=== PATIENT | male | born 1990 | race Caucasian/White ===

== ENCOUNTER 2016-10-22 12:41 | Emergency (ER) | payer OTHER ==
[2016-10-22 12:45] VITALS: RESP 16; TEMP 98.1; O2SAT 96
--- NOTE | 2016-10-22 13:20 | EDPHY ---
H & P Time Seen by Provider: 10/22/16 13:13 HPI/ROS: CHIEF COMPLAINT: Right wrist injury HISTORY OF PRESENT ILLNESS: 26-year-old [place] wrist this morning. Pain with palpation and axial loading. REVIEW OF SYSTEMS: No weakness or numbness distally and no elbow or shoulder symptoms. 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 Patient has tenderness to palpation on the proximal portion of the thenar eminence and over the snuffbox on the right wrist. Normal motor sensory and capillary refill in all fingers. No visible deformity and no skin laceration. No rotation of the fingers when making a fist. Emergency Department course/MDM: X-rays reviewed with the patient personally. X-ray personally interpreted by myself is normal of the right wrist. Velcro thumb spica splint applied by tech on the patient's right wrist. Patient is warned mandatory orthopedic follow-up with Dr. Shaw this week for the possibility of occult scaphoid fracture. Smoking Status: Current every day smoker Constitutional: Initial Vital Signs Temperature (C) 36.7 C 10/22/16 12:42 Heart Rate 89 10/22/16 12:42 Respiratory Rate 16 10/22/16 12:42 Blood Pressure 122/70 H 10/22/16 12:42 O2 Sat (%) 96 10/22/16 12:42 O2 Delivery Mode Room Air Allergies/Adverse Reactions: No Known Allergies Allergy (Unverified 10/22/16 12:46) Home Medications: Medication Instructions Recorded ALPRAZolam [Xanax 0.5 MG (*)] 0.5 mg PO 10/22/16 Amphet Asp and D/Amphet [Adderall 10 mg PO 10/22/16 10 MG (*)] Esomeprazole Mag Trihydrate 40 mg PO 10/22/16 [Nexium] FLUoxetine [Prozac 10 MG (*)] 10/22/16 MDM/Departure - Depart Disposition: Home, Routine, Self-Care Clinical Impression: Right wrist sprain Qualifiers: Encounter type: initial encounter Qualified Code(s): S63.501A - Unspecified sprain of right wrist, initial encounter Condition: Good Instructions: Wrist Sprain (ED) Additional Instructions: Your x-rays negative but it is possible that you have a scaphoid fracture. Mandatory orthopedic follow-up this week. Stand Alone Forms: Work Limited Duty Referrals: Sbeas Shaw MD [Medical Doctor] - 2-3 days without fail (Follow-up this week with Orthopedics in the office. Wear splint at all times even when at work.)
[2016-10-22 13:52] VITALS: BP 120/71; PULSE 74
== END 2016-10-22 13:51 | disposition home or self-care (01) ==
DX: S63.501A Unspecified sprain of right wrist, initial encounter (principal); F17.200 Nicotine dependence, unspecified, uncomplicated; V00.311A Fall from snowboard, initial encounter; Y92.89 Other specified places as the place of occurrence of the external cause; Y93.23 Activity, snow (alpine) (downhill) skiing, snowboarding, sledding, tobogganing and snow tubing
CPT/HCPCS: L3807

== ENCOUNTER 2017-11-14 13:31 | Emergency (ER) | payer OTHER ==
[2017-11-14] MEDS ORDERED: HYDROCODONE/APAP 5/325 TAB PO ONE (13:59)
--- NOTE | 2017-11-14 14:50 | EDPHY ---
H & P Time Seen by Provider: 11/14/17 13:48 HPI/ROS: HPI Finger injury. 27-year-old male by private vehicle. He is right-hand dominant. He was at work at [employer] He had a door slam on his right 5th finger, distal aspect. He complains of pain and deformity to the distal aspect of the right 5th finger. No other injury or complaint. ROS: Constitutional: No fever, no chills. No weakness. Musculoskeletal: No back pain. No neck pain. As above. No other extremity pain. Skin: No rashes. Abrasion to dorsal aspect right 5th finger. Neurological: No focal weakness or altered sensation. Past medical history: Anxiety, attention deficit hyperactivity disorder. Social history: Nonsmoker. Here by himself. Physical Exam: General Appearance: Alert, no distress. This patient is responding to questions appropriately and in full sentences. This patient appears well- hydrated and well-nourished. Eyes: Pupils equal and round no pallor or injection. No lid edema, erythema or injection. Right hand examination: Significant for a superficial abrasion dorsal aspect just proximal to the DIP joint of the 5th finger, this does not represent a deep laceration or potential open fracture, there is a associated deformity associated with this. The left 5th finger has normal capillary refill distal aspect and is neurovascularly intact. Neurological: Motor sensory function is grossly intact. Cranial nerves are normal. Gait is normal. Skin: Warm and dry, no rashes. Extremities are symmetrical except noted. All joints range without pain or impingement except noted. Psychiatric: No agitation. No depression. Database: EKG: Imaging: Right hand x-ray series: Significant for a comminuted fracture of the mid through distal phalanx with a bone with of dorsal displacement of the distal fragment. The distal interphalangeal joint does not appear to be involved. Interpreted me. Post reduction x-ray series: Alignment is slightly improved but significant subluxation still present. Interpreted by me. Procedures: Procedure: Dislocation reduction right 5th finger, middle phalanx fracture. Digital block of the right 5th digit was performed using 0.5% bupivacaine without epinephrine. Excellent anesthesia obtained. The fracture was reduced in the usual fashion without complications. Post reduction the patient's neurovascular exam is normal. Post reduction x-ray demonstrates reduction of the joint to the anatomic position. The procedure was performed by myself. Procedure: Splint placement. A aluminum finger splint was applied to the 5th digit in the position of comfort. After application of the splint I returned and re-examined the patient. The splint was adequately immobilizing the joint and distal to the splint the patient's circulation and sensation was intact. Emergency department course: Vital signs reviewed. The patient was given 2 Vicodin tablets from triage. After my assessment x-rays obtained and reviewed with the patient. Diagnosis discussed. Digital block as noted above performed followed by reduction as noted. Superficial abrasion dorsal aspect over the fracture site was irrigated , I removed debris and dried blood. This wound does not represent an open fracture. Followed by splinting. 3:10 p.m., spoke with orthopedic hand specialist Dr. Henley. Case discussed with him in detail. Dr. Henley's partner, Dr. Betancur, who is also a hand specialist will see this patient tomorrow for further management. Dr. Henley agrees with emergency department management. Plan for follow-up was discussed with the patient thoroughly. Return to emergency department precautions reviewed. All of his questions were answered. The patient was discharged home in good condition with a friend who is driving. Differential Diagnosis: The differential diagnosis on this patient includes but is not limited to fracture dislocation to right hand distal middle phalanx of the 5th digit. Open fracture unlikely. This represents a partial list of diagnoses considered. These considerations are based on history, physical exam, past history, reassessment and diagnostic testing. Smoking Status: Former smoker Constitutional: Initial Vital Signs Temperature (C) 36.5 C 11/14/17 13:34 Heart Rate 72 11/14/17 13:34 Respiratory Rate 17 11/14/17 13:34 Blood Pressure 133/74 H 11/14/17 13:34 O2 Sat (%) 98 11/14/17 13:34 O2 Delivery Mode Room Air Allergies/Adverse Reactions: No Known Allergies Allergy (Verified 11/14/17 13:34) Home Medications: Medication Instructions Recorded ALPRAZolam [Xanax 0.5 MG (*)] 0.5 mg PO 10/22/16 Amphet Asp and D/Amphet [Adderall 10 mg PO 10/22/16 10 MG (*)] Esomeprazole Mag Trihydrate 40 mg PO 10/22/16 [Nexium] FLUoxetine [Prozac 10 MG (*)] 10/22/16 Medical Decision Making - Diagnostics Imaging Results: Imaging Impressions Hand X-Ray 11/14/17 13:38 Impression: Comminuted, displaced and angulated intra-articular fracture of the middle phalanx of the right fifth digit. - Data Points Medications Given: Discontinued Medications Hydrocodone Bitart/Acetaminophen ([place] 5/325) 2 tab PO EDNOW ONE Stop: 11/14/17 14:00 Last Admin: 11/14/17 14:01 Dose: 2 tab Departure - Departure Disposition: Home, Routine, Self-Care Clinical Impression: Fracture of finger, middle phalanx, right, closed Condition: Good Instructions: Finger Fracture (ED) Additional Instructions: Read and follow provided instructions. Follow-up with orthopedic hand specialist Dr. Betancur, tomorrow, in his office as discussed for further management of your finger injury. Call his office this afternoon for appointment time. Ibuprofen dosin mg every 6 hours with meals for the next 3 days only. Take only as needed for pain. Return to the emergency department for worsening pain, discoloration of, fever or other serious concerns. Referrals: Jt Betancur MD [Medical Doctor] - As per Instructions
[2017-11-14 15:31] VITALS: BP 128/70
== END 2017-11-14 15:31 | disposition home or self-care (01) ==
PROC: 0PSTXZZ Reposition Right Finger Phalanx, External Approach (ICD-10-PCS; principal; 2017-11-14)
DX: S62.616A Displaced fracture of proximal phalanx of right little finger, initial encounter for closed fracture (principal); Z87.891 Personal history of nicotine dependence; W23.1XXA Caught, crushed, jammed, or pinched between stationary objects, initial encounter; Y92.89 Other specified places as the place of occurrence of the external cause; Y99.0 Civilian activity done for income or pay; Y93.89 Activity, other specified
CPT/HCPCS: L3925